=== PATIENT | female | born 1965 | race Caucasian/White ===

== ENCOUNTER 2017-08-26 13:53 | Observation (INO) | payer OTHER ==
[~2017-08-26] VITALS: Ht 147.3 cm; Wt 64.9 kg
[2017-08-26 14:25] LABS: BASOPHILS # (AUTO) 0.1 (0.0-0.1); BASOPHILS % 0.9 % (0.0-1.0); EOSINOPHILS # (AUTO) 0.6 (0.0-0.4); EOSINOPHILS % 5.8 % (0.0-6.0); HEMATOCRIT 40.9 % (34.2-44.1); HEMOGLOBIN 14.9 g/dL (12.0-16.0); LYMPHOCYTES # (AUTO) 3.3 (1.0-3.2); LYMPHOCYTES % 30.3 % (18.0-39.1); MEAN CORPUSCULAR HEMOGLOBIN 30.5 pg (28-32); MEAN CORPUSCULAR HGB CONC 36.4 g/dL (31-35); MEAN CORPUSCULAR VOLUME 83.6 fL (81-99); MONOCYTES # (AUTO) 0.9 (0.2-0.8); MONOCYTES % 7.9 % (4.4-11.3); NEUTROPHILS # (AUTO) 5.9 (2.1-6.9); NEUTROPHILS % 54.6 % (38.7-80.0); PLATELET COUNT 388 x10e3/uL (140-360); RED BLOOD COUNT 4.89 x10e6/uL (3.6-5.1); RED CELL DISTRIBUTION WIDTH 12.3 % (11.7-14.4)
[2017-08-26 14:44] LABS: ALANINE AMINOTRANSFERASE 32 IU/L (0-55); ALBUMIN 3.3 g/dL (3.5-5.0); ALBUMIN/GLOBULIN RATIO 0.8 (0.8-2.0); ALKALINE PHOSPHATASE 154 IU/L (40-150); AMYLASE 25 U/L (25-125); ANION GAP 14.9 mmol/L (8-16); BLOOD UREA NITROGEN 15 mg/dL (7-26); BUN/CREATININE RATIO 19 (6-25); CARBON DIOXIDE 29 mmol/L (22-29); CHLORIDE 93 mmol/L (98-107); CREATININE, SERUM 0.78 mg/dL (0.57-1.11); EST GLOMERULAR FILTRATION RATE > 60 ML/MIN (60-); GLUCOSE 90 mg/dL (74-118); LIPASE 18 U/L (8-78); SODIUM 134 mmol/L (136-145)
[2017-08-26 14:46] LABS: POTASSIUM 2.9 mmol/L (3.5-5.1)
--- NOTE | 2017-08-26 15:04 | Diagnostic Imaging Report ---
PROCEDURE: A single PA view of the chest. COMPARISON: DX, CHEST 2 VIEWS, 03/21/2013, 11:17. INDICATIONS: RUQ PAIN, CHEST PAIN FINDINGS: Lines/tubes: None. Lungs: The lungs are well inflated. There is no evidence of consolidation or pulmonary edema. Pleura: Interval development of blunting of the left lateral costophrenic sulcus, which may represent pleural thickening versus small pleural effusion Heart and mediastinum: Cardiac silhouette is unremarkable. Pulmonary vasculature is normal. Bones: No acute bony abnormality. IMPRESSION: 1. findings may represent left pleural thickening versus small pleural effusion. Recommend chest PA and lateral for further evaluation. Shay Valderrama M.D. Dictated by: Shay Valderrama M.D. on 08/26/2017 at 15:04 Electronically approved by: Shay Valderrama M.D. on 08/26/2017 at 15:04
[2017-08-26 15:37] LABS: BILIRUBIN,URINE 1+ (NEGATIVE); CLARITY,URINE CLEAR (CLEAR); COLOR,URINE YELLOW (YELLOW); KETONES,URINE NEGATIVE (NEGATIVE); LEUKOCYTE ESTERASE ,URINE TRACE (NEGATIVE); NITRITE,URINE NEGATIVE (NEGATIVE); PROTEIN,URINE DIPSTICK NEGATIVE (NEGATIVE); URINE UROBILINOGEN 0.2 mg/dL (0.2 - 1)
[2017-08-26 15:52] LABS: EPITHELIAL CELLS,URINE RARE /LPF; MUCUS,URINE FEW (RARE); RBC,URINE 0-5 /HPF (0-5); WBC,URINE (MAN) 0-5 /HPF (0-5)
[2017-08-26] MEDS ORDERED: POTASSIUM CHLORIDE 20 MEQ TAB CR PO STA (16:03)
[2017-08-26] MEDS ORDERED: POTASSIUM CHLORIDE 10MEQ/100ML 200 ML IV ONE (16:15)
[2017-08-26] MEDS ORDERED: POTASSIUM CHLORIDE 20MEQ/100ML 100 ML IV SCH (16:15)
--- NOTE | 2017-08-26 16:57 | Diagnostic Imaging Report ---
PROCEDURE:US GALLBLADDER COMPARISON:None. INDICATIONS:RUQ PAIN TECHNIQUE: Baez-scale and color doppler transverse and longitudinal images of the right upper quadrant of the abdomen were obtained. FINDINGS: Liver: 10.8 cm in right mid-clavicular line. Increased echogenicity. Relatively well-circumscribed 1.7 x 1.6 x 1.8 cm homogeneously hyperechoic lesion in the lateral aspect of the right hepatic lobe. No other focal lesions. Main portal vein: 0.8 cm, hepatopetal flow Gallbladder: No stones, sludge, wall thickening, or pericholecystic fluid. Common Bile Duct: 0.2 cm Sonographic Polanco's sign: Negative Right kidney: 10.5 cm. Normal echogenicity. No solid masses or hydronephrosis. 4.5 x 3.2 x 5.2 cm cystic, anechoic, mostly exophytic lesion in the mid inferior aspect of the right kidney Pancreas: The visualized portions are unremarkable. Inferior vena cava: Patent Aorta: Within normal limits Ascites: None in the right upper quadrant of the abdomen. CONCLUSION: 1. No sonographic evidence of cholelithiasis or cholecystitis. 2. 1.8 cm hyperechoic lesion in the right hepatic lobe likely represents a hemangioma. This can be further assessed with CT abdomen, which has been previously scheduled 3. 5.2 cm right renal simple cyst. Shay Valderrama M.D. Dictated by: Shay Valderrama M.D. on 08/26/2017 at 16:57 Electronically approved by: Shay Valderrama M.D. on 08/26/2017 at 16:57
[2017-08-26] MEDS ORDERED: AMBIEN10 MG PO (17:02)
[2017-08-26] MEDS ORDERED: ULTRAM 50MG50 MG PO (17:02)
[2017-08-26] MEDS ORDERED: HYDROCHLOROTH12.5 M1 PO (17:02)
--- NOTE | 2017-08-26 17:46 | Diagnostic Imaging Report ---
PROCEDURE: CT scan of the chest WITH intravenous contrast, using PE protocol. TECHNIQUE: The chest was scanned utilizing a multidetector helical scanner from the lung apex through the level of the adrenal glands after the IV administration of 100 cc of Isovue 370 with special concentration in the pulmonary arteries. Coronal and sagittal multiplanar reformations were obtained. COMPARISON: None. INDICATIONS: PE FINDINGS: Lines/tubes: None. Lungs and Airways: No filling defects in the main, right or left pulmonary arteries to their segmental level to suggest pulmonary embolism. Mild compressive atelectasis of the left lower lobe. Linear opacities in the anterior left lower lobe likely represent subsegmental atelectasis or scarring (series 3, image 83). Linear opacities with associated bronchiectasis in the lingula (series 3, image 62), consistent with scarring. 3-4 mm pulmonary nodule in the right upper lobe (series 3, image 39). 4 mm groundglass nodule in the right middle lobe (series 3, image 61). 4-5 mm nodule in the right middle lobe (series 3, image 66). 3 mm pulmonary nodule in the left lower lobe (series 3, image 67). 1.2 cm linear density in the posterior left lower lobe (series 3, image 68), likely representing an impacted bronchus. Questionable centrilobular nodules, predominantly in the upper lobes (for example, series 3, image 32), with relative sparing of the periphery. Focal rounded convexity in the lateral right lower lobe (series 3, image 94, and coronal image 50), described on CT, abdomen and pelvis performed same day. Airways are clear, without endobronchial lesions. Pleura: Trace left pleural effusion. Heart and mediastinum: Thyroid is unremarkable. Heart size is normal. No pericardial effusion. The aorta is non-aneurysmal. Main pulmonary artery is normal in caliber. Lymph nodes: No mediastinal or axillary adenopathy. Enlarged right hilar nodes (series 2, image 64 and coronal image 43). Abdomen: Limited contrast-enhanced views of the upper abdomen show no abnormality within the visualized liver, spleen, pancreas, or kidneys. The adrenal glands are normal. Bones: No aggressive lytic lesions. Bilateral breast implants. IMPRESSION: 1. no CT evidence of pulmonary embolism to the segmental level. 2. Trace left pleural effusion with associated mild compressive atelectasis of the left lower lobe. Left lower lobe and lingular scarring. 3. Questionable centrilobular nodules, predominantly in the upper lobes. Respiratory bronchiolitis if the patient is a smoker, infectious airway disease or hypersensitivity pneumonitis are considerations. 4. Several pulmonary nodules, as described. Per Fleischner Society 2017 guidelines, these nodules do not require followup if the patient is low risk. 5. Mildly enlarged right hilar nodes. 6. Please see CT abdomen and pelvis for description of focal rounded convexity in the lateral right lower lobe. Shay Valderrama M.D. Dictated by: Shay Valderrama M.D. on 08/26/2017 at 17:46 Electronically approved by: Shay Valderrama M.D. on 08/26/2017 at 17:46
--- NOTE | 2017-08-26 18:02 | Diagnostic Imaging Report ---
PROCEDURE: CT ABDOMEN AND PELVIS WITH CONTRAST TECHNIQUE: The abdomen and pelvis were scanned utilizing a multidetector helical scanner from the diaphragm to the lesser trochanter after the IV administration of 100 cc of Isovue 370. Coronal and sagittal multiplanar reformations were obtained. COMPARISON: Patients [facility], US, US GALLBLADDER, 08/26/2017, 15:13. INDICATIONS: ABD PAIN FINDINGS: LOWER THORAX: 2.5 x 1.3 x 1.7 cm subpleural focal oval shaped lesion with peripheral enhancement in the lateral right lower lobe at the costophrenic angle (series 5, image 13, sagittal, image 35 and coronal image 61). Please see CT chest performed same date for other lung findings. HEPATOBILIARY: 8-9 mm hypodense lesion in hepatic segment VII (series 5, image 14) with peripheral nodular enhancement. 2.4 x 1.5 x 1.6 cm hypodense lesion in hepatic segment (series 5, image 28 and sagittal image 40), which shows peripheral nodular enhancement. Adjacent 4 mm hypodense lesion (series 5, image 28), which is too small to characterize. Wedge-shaped hypodense lesion in hepatic segment IVB adjacent to the falciform ligament, likely represent focal fatty infiltration. No other focal lesions. No biliary ductal dilation. Gallbladder is unremarkable. SPLEEN: No splenomegaly. PANCREAS: No focal masses or ductal dilatation. ADRENALS: No adrenal nodules. KIDNEYS/URETERS: No hydronephrosis, stones, or solid mass lesions. 5.2 x 4.5 x 4.7 cm hypodense lesion in the interpolar region of the right kidney (series 5, image 35), which contains predominantly thin peripheral calcification, except for a slightly thicker linear calcification in its inferior aspect (sagittal image 45 and coronal image 60) and measured density of 20-21 HU. No mural nodules. 3.4 x 3.0 x 2.7 cm simple cyst in the right kidney (series 5, image 30). PELVIC ORGANS/BLADDER: Bladder is mostly decompressed and grossly unremarkable. Uterus is absent. No adnexal masses. PERITONEUM / RETROPERITONEUM: No free air or fluid. LYMPH NODES: No lymphadenopathy. VESSELS: Atherosclerotic calcification of the abdominal aorta and iliac vessels. GI TRACT: No bowel dilation or evidence of obstruction. Appendix is well identified and normal in caliber. No pericolonic inflammatory changes. Scattered diverticula in the sigmoid colon without diverticulitis. BONES AND SOFT TISSUES: No aggressive lytic lesion. Mild degenerative disc changes in the lumbosacral spine. Soft tissues are grossly unremarkable. IMPRESSION: 1. No acute abdominopelvic abnormalities. 2. Indeterminate subpleural oval shaped lesion with peripheral enhancement in the lateral right lower lobe at the costophrenic angle. This may represent a focal pleural based mass (solitary fibrous tumor is a consideration) versus focal empyema. 3. 2 lesions in the liver are indeterminate, however, peripheral nodular enhancement, suggestive of small hemangiomas. These can be assessed with contrast-enhanced MRI, abdomen with liver mass protocol on a nonemergent basis. 4. Complicated 5.2 cm cystic lesion in the right kidney with peripheral calcification, which remains indeterminate. Recommend CT abdomen with renal mass protocol on a nonemergent basis. Shay Valderrama M.D. Dictated by: Shay Valderrama M.D. on 08/26/2017 at 18:02 Electronically approved by: Shay Valderrama M.D. on 08/26/2017 at 18:02
--- OUTSIDE RECORDS SUMMARY | 2017-08-26 18:46 | XMS REPORT ---
Author Author [facility] Address Unknown Phone Unavailable Care Team Providers [employer] Name Role Phone MELVIN DOMINIQUE Unavailable Unavailable Problems This patient has no known problems. Allergies, Adverse Reactions, Alerts This patient has no known allergies or adverse reactions. Medications This patient has no known medications. Results Test Description Test Time Test Comments Text Results Atomic Results Result Comments CT ABDOMEN/PELVIS W [place] [address] Patient Name: VINNIE TRINH MR #: [id number] : 1965 Age/Sex: 51/F Req #: [id number] Adm Physician: Ordered by: MELVIN WHITTINGTON, DOMINIQUE WHITTINGTON Report #: [id number] Location: ER Room/Bed: Procedure: [id number] CT/CT ABDOMEN/PELVIS W Exam Date: 08/26/17 Exam Time: 1630 REPORT STATUS: Signed PROCEDURE: CT ABDOMEN AND PELVIS WITH CONTRAST TECHNIQUE: The abdomen and pelvis were scanned utilizing a multidetector helical scanner from the diaphragm to the lesser trochanter after the IV administration of 100 cc of Isovue 370. Coronal and sagittal multiplanar reformations were obtained. COMPARISON : Patients [facility], US, US GALLBLADDER, 08/26/2017, 15:13. INDICATIONS: ABD PAIN FINDINGS: LOWER THORAX: 2.5 x 1.3 x 1.7 cm subpleural focal oval shaped lesion with peripheral enhancement in the lateral right lower lobe at the costophrenic angle (series 5, image 13, sagittal, image 35 and coronal image 61). Please see CT chest performed same date for other lung findings. HEPATOBILIARY: 8-9 mm hypodense lesion in hepatic segment VII (series 5, image 14) with peripheral nodular enhancement. 2.4 x 1.5 x 1.6 cm hypodense lesion in hepatic segment ( series 5, image 28 and sagittal image 40), which shows peripheral nodular enhancement. Adjacent 4 mm hypodense lesion (series 5, image 28), which is too small to characterize. Wedge-shaped hypodense lesion in hepatic segment IVB adjacent to the falciform ligament, likely represent focal fatty infiltration. No other focal lesions. No biliary ductal dilation. Gallbladder is unremarkable. SPLEEN: No splenomegaly. PANCREAS: No focal masses or ductal dilatation. ADRENALS: No adrenal nodules. KIDNEYS/ URETERS: No hydronephrosis, stones, or solid mass lesions. 5.2 x 4.5 x 4.7 cm hypodense lesion in the interpolar region of the right kidney (series 5, image 35), which contains predominantly thin peripheral calcification, except for a slightly thicker linear calcification in its inferior aspect ( sagittal image 45 and coronal image 60) and measured density of 20-21 HU. No mural nodules. 3.4 x 3.0 x 2.7 cm simple cyst in the right kidney (series 5, image 30). PELVIC ORGANS/BLADDER: Bladder is mostly decompressed and grossly unremarkable. Uterus is absent. No adnexal masses. PERITONEUM / RETROPERITONEUM: No free air or fluid. LYMPH NODES: No lymphadenopathy. VESSELS: Atherosclerotic calcification of the abdominal aorta and iliac vessels. GI TRACT: No bowel dilation or evidence of obstruction. Appendix is well identified and normal in caliber. No pericolonic inflammatory changes. Scattered diverticula in the sigmoid colon without diverticulitis. BONES AND SOFT TISSUES: No aggressive lytic lesion. Mild degenerative disc changes in the lumbosacral spine. Soft tissues are grossly unremarkable. IMPRESSION: 1. No acute abdominopelvic abnormalities. 2. Indeterminate subpleural oval shaped lesion with peripheral enhancement in the lateral right lower lobe at the costophrenic angle. This may represent a focal pleural based mass (solitary fibrous tumor is a consideration) versus focal empyema. 3. 2 lesions in the liver are indeterminate, however, peripheral nodular enhancement, suggestive of small hemangiomas. These can be assessed with contrast-enhanced MRI, abdomen with liver mass protocol on a nonemergent basis. 4. Complicated 5.2 cm cystic lesion in the right kidney with peripheral calcification, which remains indeterminate. Recommend CT abdomen with renal mass protocol on a nonemergent basis. Demond Valderrama M.D. Dictated by: Demond Valderrama M.D. on 08/26/2017 at 18:02 Electronically approved by : Demond Valderrama M.D. on 08/26/2017 at 18:02 Dictated By: DEMOND VALDERRAMA MD 01 Transcribed By: TYLER on 08/26/171801 COPY TO: DOMINIQUE CHARLES CT CHEST W [place] [address] Patient Name: VINNIE TRINH MR #: [id number] : 1965 Age/Sex: 51/F Req # : [id number] Adm Physician: Ordered by: JOSELITO TABOR NARROW GAUGE BRAKEMAN Report #: [id number] Location: ER Room/Bed: Procedure: [id number] CT/CT CHEST W Exam Date: 08/26/17 Exam Time: 1630 REPORT STATUS: Signed PROCEDURE: CT scan of the chest WITH intravenous contrast, using PE protocol. TECHNIQUE: The chest was scanned utilizing a multidetector helical scanner from the lung apex through the level of the adrenal glands after the IV administration of 100 cc of Isovue 370 with special concentration in the pulmonary arteries. Coronal and sagittal multiplanar reformations were obtained. COMPARISON: None. INDICATIONS: PE FINDINGS: Lines/tubes: None. Lungs and Airways: No filling defects in the main, right or left pulmonary arteries to their segmental level to suggest pulmonary embolism. Mild compressive atelectasis of the left lower lobe. Linear opacities in the anterior left lower lobe likely represent subsegmental atelectasis or scarring (series 3, image 83). Linear opacities with associated bronchiectasis in the lingula (series 3, image 62), consistent with scarring. 3-4 mm pulmonary nodule in the right upper lobe (series 3, image 39) . 4 mm groundglass nodule in the right middle lobe (series 3, image 61). 4- 5 mm nodule in the right middle lobe (series 3, image 66). 3 mm pulmonary nodule in the left lower lobe (series 3, image 67). 1.2 cm linear density in the posterior left lower lobe (series 3, image 68), likely representing an impacted bronchus. Questionable centrilobular nodules, predominantly in the upper lobes (for example, series 3, image 32), with relative sparing of the periphery. Focal rounded convexity in the lateral right lower lobe (series 3, image 94, and coronal image 50), described on CT, abdomen and pelvis performed same day. Airways are clear, without endobronchial lesions. Pleura : Trace left pleural effusion. Heart and mediastinum: Thyroid is unremarkable. Heart size is normal. No pericardial effusion. The aorta is non -aneurysmal. Main pulmonary artery is normal in caliber. Lymph nodes: No mediastinal or axillary adenopathy. Enlarged right hilar nodes (series 2, image 64 and coronal image 43). Abdomen: Limited contrast-enhanced views of the upper abdomen show no abnormality within the visualized liver, spleen, pancreas, or kidneys. The adrenal glands are normal. Bones: No aggressive lytic lesions. Bilateral breast implants. IMPRESSION: 1. no CT evidence of pulmonary embolism to the segmental level. 2. Trace left pleural effusion with associated mild compressive atelectasis of the left lower lobe. Left lower lobe and lingular scarring. 3. Questionable centrilobular nodules, predominantly in the upper lobes. Respiratory bronchiolitis if the patient is a smoker, infectious airway disease or hypersensitivity pneumonitis are considerations. 4. Several pulmonary nodules , as described. Per Fleischner Society 2017 guidelines, these nodules do not require followup if the patient is low risk. 5. Mildly enlarged right hilar nodes. 6. Please see CT abdomen and pelvis for description of focal rounded convexity in the lateral right lower lobe. Demond Valderrama M.D. Dictated by: Demond Valderrama M.D. on 08/26/2017 at 17: 46 Electronically approved by: Demond Valderrama M.D. on 08/26/2017 at 17:46 Dictated By: DEMOND VALDERRAMA MD 45 Transcribed By: TYLER on 08/26/171745 COPY TO: JOSELITO TABOR NARROW GAUGE BRAKEMAN CHEST SINGLE (NOT PORTABLE) [place] [address] Patient Name: VINNIE TRINH MR #: [id number] : 1965 Age/Sex: 51/F Req #: [id number] Adm Physician: Ordered by: JOSELITO TABOR NARROW GAUGE BRAKEMAN Report #: [id number] Location: ER Room/Bed: Procedure: [id number] DX/CHEST SINGLE (NOT PORTABLE) Exam Date: 08/26/17 Exam Time: 1415 REPORT STATUS: Signed PROCEDURE: A single PA view of the chest. COMPARISON: DX, CHEST 2 VIEWS, 03/21/2013 , 11:17. INDICATIONS: RUQ PAIN, CHEST PAIN FINDINGS: Lines/ tubes: None. Lungs: The lungs are well inflated. There is no evidence of consolidation or pulmonary edema. Pleura: Interval development of blunting of the left lateral costophrenic sulcus, which may represent pleural thickening versus small pleural effusion Heart and mediastinum : Cardiac silhouette is unremarkable. Pulmonary vasculature is normal. Bones: No acute bony abnormality. IMPRESSION: 1. findings may represent left pleural thickening versus small pleural effusion. Recommend chest PA and lateral for further evaluation. Demond Valderrama M.D. Dictated by: Demond Valderrama M.D. on 08/26/2017 at 15:04 Electronically approved by: Demond Valderrama M.D. on 08/26/2017 at 15:04 Dictated By: DEMOND VALDERRAMA MD 1504 Transcribed By: TYLER on 08/26/17 1504 COPY TO: JOSELITO TABOR NARROW GAUGE BRAKEMAN US GALLBLADDER [place] [address] Patient Name: VINNIE TRINH MR #: [id number] : 1965 Age/Sex: 51/F Req # : [id number] Adm Physician: Ordered by: JOSELITO TABOR NARROW GAUGE BRAKEMAN Report #: [id number] Location: ER Room/Bed: Procedure: [id number] US/US GALLBLADDER Exam Date: Exam Time: REPORT STATUS: Signed PROCEDURE: US GALLBLADDER COMPARISON: None. INDICATIONS: RUQ PAIN TECHNIQUE: Beaz-scale and color doppler transverse and longitudinal images of the right upper quadrant of the abdomen were obtained. FINDINGS: Liver: 10.8 cm in right mid-clavicular line. Increased echogenicity. Relatively well-circumscribed 1.7 x 1.6 x 1.8 cm homogeneously hyperechoic lesion in the lateral aspect of the right hepatic lobe. No other focal lesions. Main portal vein: 0.8 cm, hepatopetal flow Gallbladder: No stones, sludge, wall thickening, or pericholecystic fluid. Common Bile Duct: 0.2 cm Sonographic Polanco's sign: Negative Right kidney: 10.5 cm. Normal echogenicity. No solid masses or hydronephrosis. 4.5 x 3.2 x 5.2 cm cystic, anechoic, mostly exophytic lesion in the mid inferior aspect of the right kidney Pancreas: The visualized portions are unremarkable. Inferior vena cava: Patent Aorta: Within normal limits Ascites: None in the right upper quadrant of the abdomen. CONCLUSION: 1. No sonographic evidence of cholelithiasis or cholecystitis. 2. 1.8 cm hyperechoic lesion in the right hepatic lobe likely represents a hemangioma. This can be further assessed with CT abdomen, which has been previously scheduled 3. 5.2 cm right renal simple cyst. Demond Valderrama M.D. Dictated by: Demond Valderrama M.D. on 01/2018 at 16:57 Electronically approved by: Demond Valderrama M.D. on 08/26/2017 at 16:57 Dictated By: DEMOND VALDERRAMA MD 56 Transcribed By: TYLER on 08/26/171656 COPY TO: JOSELITO TABOR NP
[2017-08-26 20:48] VITALS: BP 116/65
[2017-08-26] MEDS: TRAMADOL HCL 50 MG TAB PO SCH (21:43)
[2017-08-26 22:33] VITALS: BP 116/65
[2017-08-26] MEDS ORDERED: IOPAMIDOL 370 MG/ML 200 ML INFUS..BTL INJ ONE (22:43)
[2017-08-26] MEDS ORDERED: SODIUM CHLORIDE 0.9% 50ML 50 ML ONE (22:43)
[2017-08-27] VITALS: BP 116/56
[2017-08-27] MEDS: TRAMADOL HCL 50 MG TAB PO SCH ×5 (01:59→22:00)
[2017-08-27 04:00] VITALS: BP 100/70
[2017-08-27 06:38] LABS: BASOPHILS # (AUTO) 0.1 (0.0-0.1); BASOPHILS % 0.9 % (0.0-1.0); EOSINOPHILS # (AUTO) 0.5 (0.0-0.4); EOSINOPHILS % 6.1 % (0.0-6.0); HEMATOCRIT 39.3 % (34.2-44.1); LYMPHOCYTES # (AUTO) 2.3 (1.0-3.2); LYMPHOCYTES % 26.9 % (18.0-39.1); MEAN CORPUSCULAR HEMOGLOBIN 30.4 pg (28-32); MEAN CORPUSCULAR HGB CONC 35.6 g/dL (31-35); MEAN CORPUSCULAR VOLUME 85.2 fL (81-99); MONOCYTES # (AUTO) 0.8 (0.2-0.8); MONOCYTES % 9.5 % (4.4-11.3); NEUTROPHILS # (AUTO) 4.9 (2.1-6.9); NEUTROPHILS % 56.1 % (38.7-80.0); PLATELET COUNT 384 x10e3/uL (140-360); RED BLOOD COUNT 4.61 x10e6/uL (3.6-5.1); RED CELL DISTRIBUTION WIDTH 12.6 % (11.7-14.4)
[2017-08-27 07:37] LABS: ALANINE AMINOTRANSFERASE 31 IU/L (0-55); ALBUMIN 2.9 g/dL (3.5-5.0); ALBUMIN/GLOBULIN RATIO 0.7 (0.8-2.0); ALKALINE PHOSPHATASE 144 IU/L (40-150); ANION GAP 16.6 mmol/L (8-16); BLOOD UREA NITROGEN 11 mg/dL (7-26); BUN/CREATININE RATIO 16 (6-25); CALCIUM 9.9 mg/dL (8.4-10.2); CARBON DIOXIDE 26 mmol/L (22-29); CHLORIDE 98 mmol/L (98-107); CREATININE, SERUM 0.68 mg/dL (0.57-1.11); EST GLOMERULAR FILTRATION RATE > 60 ML/MIN (60-); GLUCOSE 91 mg/dL (74-118); POTASSIUM 3.6 mmol/L (3.5-5.1); SODIUM 137 mmol/L (136-145)
[2017-08-27 08:49] VITALS: BP 110/60
[2017-08-27 11:11] VITALS: BP 110/60
--- NOTE | 2017-08-27 11:48 | History and Physical ---
DATE OF : 1965 A 51-year-old lady, who comes in with abdominal pain. HISTORY OF PRESENTING ILLNESS: Ms. Romero is a 51-year-old lady with the history of abdominal pain for the last 1 week. The pain started about a week ago, was in the left thoracic aorta, and the patient went to her primary care physician, was given some muscle relaxants and did not get any better. Did a CT scan. CT scan showed some urinary calculi and cyst. Saw her urologist yesterday and was scheduled for a CT scan of the abdomen and pelvis for categorization of the cyst and was told that the cyst or the stone were not causing the pain. The patient woke up yesterday with intractable pain, at this time right sided and came into the emergency room, was found to have a pleural based lesion, abdominal pain, and admitted for the same. PAST MEDICAL HISTORY: History of hypertension, history of insomnia. MEDICINE SHE TAKES AT HOME 1. Hydrochlorothiazide 12.5 mg. 2. Tramadol 50 mg as needed for pain, which was recently started. 3. Ambien 10 mg at night time for sleep. SURGICAL HISTORY: History of hysterectomy. Patient had breast implants done, C-sections, tonsillectomy and adenoidectomy, has multiple EENT problems and therefore, has chronic tubes in the ears. Patient is postmenopausal. SOCIAL HISTORY: No history of ETOH and no alcohol use and never a smoker. Patient works in the [employer]. REVIEW OF SYSTEMS: Negative for chest pain, no shortness of breath. No nausea, no vomiting, no diarrhea, no constipation, no rectal bleeding, no hematochezia, no hematemesis. Positive for abdominal pain as mentioned above and the patient radiates to the back. EXAMINATION GENERAL: Patient is alert and oriented times 3 and no pain at this time. HEENT: Normocephalic, atraumatic. Pupils react to light and accommodation. Pharynx is normal. NECK: No JVD. CVS: S1, S2 normal. Regular rhythm. LUNGS: Clear to auscultation bilaterally. ABDOMEN: Tender in the right upper quadrant and no rebound, no guarding, no Polanco signs. BACK: Normal. No CVA tenderness present. SKIN: Normal. EXTREMITIES: No clubbing, no cyanosis, no edema. IMAGING STUDIES: Abdomen, gallbladder ultrasound with no sonographic evidence of cholelithiasis, cholecystitis, 1.8-cm hyperechoic lesion seen in the liver. Chest x-ray shows left pleural thickening, which is small pleural effusion. CT of chest shows no CT evidence of pulmonary embolism, trace left pleural effusion with associated mild compressive atelectasis, left lower lobe and lingular scarring, essentially normal nodules in the upper lobes, respiratory bronchiolitis. The patient is a smoker. Several pulmonary nodules as described. Mildly enlarged right hilar node and CT of the abdomen shows no acute abdominopelvic abnormalities. Indeterminate subpleural oval-shaped lesion with peripheral enhancements in right lower lobe in the costophrenic angle. There is presence of focal pleural-based mass. Two lesions in the liver of indeterminate nature. Complicated 5.2-cm cystic lesion of right kidney with peripheral calcification, which remains indeterminate. The CT of the abdomen, did comment on it and shows 5.2 x 4.5 x 4.7 hypodense lesion and the complexity of the cyst is not mentioned. PLAN: At this time, will go ahead and consult pulmonary for the pleural-based lesion. CT of the abdomen with renal mass protocol can be assessed, but as an outpatient basis. Will let the patient know about this and the patient has been notified about this. As far as the pleural-based mass, probably a CT-guided biopsy is of importance. We are also going to do a HIDA scan for her gallbladder to rule out gallbladder disease, would be mimicking the abdominal pain and the lung problem, but there is an obvious pleural effusion. Will go ahead and have pulmonary take a look at this too. Further recommendation per clinical course. Will continue monitor the patient. Will keep the patient in-house and follow the patient along with consultants. Job#: [id number] CQ
[2017-08-27 15:32] VITALS: BP 116/56
--- NOTE | 2017-08-27 17:23 | Consultation ---
DATE OF CONSULTATION: August 27, 2017 PULMONARY CONSULTATION REASON FOR CONSULTATION: Abnormal CT chest. HISTORY OF PRESENT ILLNESS: Ms. Romero is a 51-year-old female who presented to the emergency room with the complaints of left-sided pleuritic chest pain. The pain had started a week and a half ago, and the pain is associated with mild shortness of breath. She also had recently had urinary stone which was nonobstructing and saw Urology in the office and was scheduled to do a CT abdomen/pelvis. She came to the emergency room with these complaints, underwent a CT of the chest/abdomen/pelvis, and CT of the chest showed a pleural-based mass and multiple lung nodules, which I have reviewed. She has been a smoker for 35 years for 2 packs per day. She denies any vomiting. She is having abdominal discomfort and nausea. REVIEW OF SYSTEMS: GENERAL: Denies any fever or chills. HEAD: Denies any head trauma. ENT: Denies any earache, nosebleed, throat pain. CVS: Denies any chest pain. RESPIRATORY: Shortness of breath. GI: Nausea. REST OF THE REVIEW OF SYSTEMS: Are negative except as in history of present illness. PAST MEDICAL HISTORY: As a child, when she was 15 years old, she had a left lung collapse and had a chest tube. She has hypertension and insomnia. MEDICATIONS: Reviewed. PAST SURGICAL HISTORY: Hysterectomy. Had breast implants done. section. Tonsillectomy and adenoidectomy. ENT problems, has tubes in the ears. FAMILY HISTORY AND SOCIAL HISTORY: No history of alcohol. Smokes for last 35 years 2 packs per day. PHYSICAL EXAMINATION: VITALS: Temperature 97, pulse of 92, blood pressure 116/56, respiratory rate of 18, O2 sat 95% on room air. SKIN: Warm and dry. GENERAL APPEARANCE: She is a middle-aged female. She is in mild distress because of the left-sided chest wall pain. HEENT: Head atraumatic, normocephalic. Pupils are reactive. NECK: Supple. CHEST: Lower half on the left side has some crackles but otherwise clear to auscultation. Occasional wheezing. HEART: S1 and S2 audible. ABDOMEN: Soft, nontender, nondistended. Bowel sounds audible. No hepatosplenomegaly. EXTREMITIES: No clubbing, cyanosis or edema. NEUROLOGICALLY: She is awake and alert, oriented, following commands, responding to questions appropriately. LABORATORY DATA: White count of 10.74, hemoglobin 14.9, platelets 388. Chemistry: Sodium 137, potassium 3.6, chloride 98, BUN 11, creatinine 0.68. D-dimer was 2.25. CT of the chest, abdomen and pelvis was done. I have reviewed the films of CT chest. It is showing small lung nodules, multiple, but these nodules are less than 1 cm. There is a 1 cm density in the left lower lobe which looks like scarring. There is thickened pleura on the left side along with a possible pleural-based mass. ASSESSMENT: Ms. Romero is a 51-year-old female. She presented to the emergency room with pleuritic chest pain. CT of the chest is showing left pleural-based mass. She has been a smoker for 35 years 2 packs per day, and there is a left lower lobe area which is 1.2 cm. However, it looks like scarring. She also had a left-sided chest tube and lung collapse when she was 15 years old. PLAN 1. This could represent scarring. However, patient, being a heavy smoker, almost [id number] smoker with this pleural-based mass, will need biopsy. I will schedule her for CT-guided biopsy. 2. High likelihood of having COPD because of [id number] smoking history. Will order bedside PFT. 3. I will start the patient on nebulizer treatment. Thank you for this consult. Job#: [id number] BRADY
[2017-08-27 20:00] VITALS: BP 101/57
[2017-08-27] MEDS: ZOLPIDEM TARTRATE 10 MG TAB PO PRN (21:26)
--- NOTE | 2017-08-27 21:46 | Diagnostic Imaging Report ---
Hepatobiliary Scan with Gallbladder Ejection Fraction Clinical information: 51 F with RUQ abdominal pain x1.5 weeks Technique: Following intravenous administration of 6 millicuries of Tc-99m mebrofenin, dynamic images of the abdomen in the anterior projection were obtained through 40 minutes. Sincalide (CCK analog) 1.4 micrograms was administered intravenously over 30 minutes with additional imaging for determination of gallbladder ejection fraction. Discussion: Perfusion of the liver is normal. Extraction of tracer by the liver parenchyma is normal. Tracer appears promptly within the biliary tract. The gallbladder begins to fill by 30 minutes post injection of tracer and fills adequately. Tracer is seen in the small bowel by 22 minutes. The gallbladder ejection fraction with sincalide is 37% (normal greater than 40%). Impression: 1. Filling of the gallbladder excludes acute cystic duct obstruction/acute cholecystitis. 2. The decreased gallbladder ejection fraction of 37% supports the clinical diagnosis of chronic cholecystitis/gallbladder dyskinesia. Signed by: Dr. Ashley Helton M.D. on 08/27/2017 9:43 PM
[2017-08-28] VITALS (8 sets, daily range): BP systolic 97–111; BP diastolic 54–65
[2017-08-28] MEDS: ALBUTEROL/IPRATROPIUM 3 ML NEB NEB SCH ×3 (01:00→20:00)
[2017-08-28] MEDS: TRAMADOL HCL 50 MG TAB PO SCH ×6 (01:25→22:00)
[2017-08-28 06:25] LABS: BASOPHILS # (AUTO) 0.1 (0.0-0.1); BASOPHILS % 1.2 % (0.0-1.0); EOSINOPHILS # (AUTO) 0.7 (0.0-0.4); HEMATOCRIT 41.6 % (34.2-44.1); HEMOGLOBIN 14.4 g/dL (12.0-16.0); LYMPHOCYTES # (AUTO) 2.5 (1.0-3.2); LYMPHOCYTES % 28.1 % (18.0-39.1); MEAN CORPUSCULAR HGB CONC 34.6 g/dL (31-35); MEAN CORPUSCULAR VOLUME 86.7 fL (81-99); MONOCYTES # (AUTO) 0.9 (0.2-0.8); MONOCYTES % 9.4 % (4.4-11.3); NEUTROPHILS # (AUTO) 4.8 (2.1-6.9); NEUTROPHILS % 52.7 % (38.7-80.0); PLATELET COUNT 300 x10e3/uL (140-360); RED CELL DISTRIBUTION WIDTH 12.5 % (11.7-14.4)
[2017-08-28 06:52] LABS: ANION GAP 12.6 mmol/L (8-16); BLOOD UREA NITROGEN 10 mg/dL (7-26); BUN/CREATININE RATIO 14 (6-25); CALCIUM 9.6 mg/dL (8.4-10.2); CARBON DIOXIDE 31 mmol/L (22-29); CHLORIDE 97 mmol/L (98-107); CREATININE, SERUM 0.71 mg/dL (0.57-1.11); EST GLOMERULAR FILTRATION RATE > 60 ML/MIN (60-); GLUCOSE 106 mg/dL (74-118); POTASSIUM 3.6 mmol/L (3.5-5.1); SODIUM 137 mmol/L (136-145)
--- NOTE | 2017-08-28 12:49 | Consultation ---
DATE OF CONSULTATION: August 28, 2017 REFERRING PHYSICIAN: Dr. Jon Funez HISTORY OF PRESENT ILLNESS: Patient is a 51-year-old female admitted to the hospital with complaints of abdominal pain. Patient describes pain in the epigastrium and right upper quadrant. She has had pain that was fairly severe for 2 days prior to admission. It is somewhat less now, but she still is having pain every day. She says it wakes her at night. Evaluation has been done which revealed abnormal HIDA scan with low ejection fraction at 37%, but pain was not reproduced. Ultrasound of the gallbladder did not reveal any gallstones. She has also been found to have a pleural-based lesion, which is being evaluated by pulmonary. The patient has not had any fever and has not had any weight loss. PAST MEDICAL HISTORY: Significant for previous hysterectomy, section, bilateral breast implants, tonsillectomy and multiple sinus surgeries. She has a history of hypertension. MEDICATIONS: Hydrochlorothiazide, tramadol and Ambien for sleep. ALLERGIES: SHE HAS NO KNOWN ALLERGIES. FAMILY HISTORY: Noncontributory. SOCIAL HISTORY: The patient smokes cigarettes, a pack and a half per day for many years. Does not drink alcohol. REVIEW OF SYSTEMS: She has had no fever, no chest pain, no weight loss. She has had some associated nausea but no vomiting. PHYSICAL EXAMINATION VITAL SIGNS: Normal. GENERAL: The patient is awake and alert and in no distress. HEENT: No scleral icterus. NECK: No masses. LUNGS: Equal breath sounds are clear bilaterally. CARDIAC: Regular rate and rhythm with no murmur. ABDOMEN: Soft. There is slight epigastric tenderness. There is no mass. There is no distention. There is no organomegaly. EXTREMITIES: No edema. NEUROLOGIC: Grossly intact. IMAGING: Pleural-based lesion in the right lung base and a complex cyst in the right kidney. Ultrasound did not reveal any gallstones. HIDA scan is as stated above. ASSESSMENT: This is a 51-year-old female with a long history of cigarette smoking with epigastric and right upper quadrant abdominal pain. This very well may represent cholecystitis. There is some concern about the lesion in her lung. At this point recommend pursuing the lung lesion with biopsy as planned. After this is done, if her symptoms persist, she may benefit from cholecystectomy. This was explained to the patient. Thank you for asking me to see . Job#: [id number] JAY
[2017-08-28] MEDS: ZOLPIDEM TARTRATE 10 MG TAB PO PRN (21:20)
[2017-08-29] VITALS (8 sets, daily range): BP systolic 102–132; BP diastolic 58–80
[2017-08-29] MEDS: TRAMADOL HCL 50 MG TAB PO SCH ×5 (02:00→20:35)
[2017-08-29] MEDS: ALBUTEROL/IPRATROPIUM 3 ML NEB NEB SCH ×3 (07:30→20:15)
[2017-08-29 10:31] LABS: BILIRUBIN,URINE NEGATIVE (NEGATIVE); CLARITY,URINE CLEAR (CLEAR); COLOR,URINE YELLOW (YELLOW); KETONES,URINE NEGATIVE (NEGATIVE); LEUKOCYTE ESTERASE ,URINE NEGATIVE (NEGATIVE); NITRITE,URINE NEGATIVE (NEGATIVE); PROTEIN,URINE DIPSTICK NEGATIVE (NEGATIVE); URINE UROBILINOGEN 0.2 mg/dL (0.2 - 1)
[2017-08-29 10:45] LABS: EPITHELIAL CELLS,URINE FEW /LPF
[2017-08-29] MEDS ORDERED: IOPAMIDOL 370 MG/ML 200 ML INFUS..BTL INJ ONE (13:13)
[2017-08-29] MEDS ORDERED: SODIUM CHLORIDE 0.9% 50ML 100 ML ONE (13:13)
[2017-08-29] MEDS: ZOLPIDEM TARTRATE 10 MG TAB PO PRN (21:00)
--- NOTE | 2017-08-29 22:14 | Diagnostic Imaging Report ---
EXAM: CT abdomen WITHOUT and WITH contrast INDICATION: CT abdomen and pelvis on 08/26/2017 COMPARISON: None. TECHNIQUE: Abdomen was scanned utilizing a multidetector helical scanner from the lung base to the pelvic inlet before and after administration of IV contrast. Coronal and sagittal reformations were obtained. Renal mass protocol was performed. Scan was performed pre-, nephrographic, and 4 minute delayed phase. 3-D reconstructed images of the kidneys were obtained. Dedicated workstation IV CONTRAST: 100 mL of [id number] ORAL CONTRAST: None RADIATION DOSE: Total DLP: 1137.68 mGy*cm Estimated effective dose: (DLP x 0.015 x size factor) mSv COMPLICATIONS: None FINDINGS: LINES and TUBES: None. LOWER THORAX: Small bilateral pleural effusions left greater than right with evidence of atelectasis. HEPATOBILIARY: No focal hepatic lesions. No biliary ductal dilation. GALLBLADDER: No radio-opaque stones or sludge. No wall thickening. SPLEEN: No splenomegaly. PANCREAS: No focal masses or ductal dilatation. ADRENALS: Left adrenal nodule measuring 1.6 cm in diameter demonstrates attenuation below 0 Hounsfield units on precontrast consistent with lipid rich adenoma. The right adrenal gland is normal KIDNEYS/URETERS: Kidneys enhance symmetrically. No hydronephrosis. There is a 4 mm nonobstructive stone in the inferior renal collecting system of the left kidney. Punctate 2.5 mm stone in the interpolar region of the right kidney. * 4.6 cm peripherally calcified hypodense cystic lesion in the right kidney anterior interpolar region measuring 15 Hounsfield units on precontrast, 19 on portal venous and 24 on delayed compatible with a minimally complicated Bosniak type II cyst. * 2.4 cm cyst in the medullary area of the left renal interpolar region measuring 9 Hounsfield units on precontrast, 16 on portal venous phase and 15 on delay compatible with Bosniak type I cyst. GI TRACT: No abnormal distention, wall thickening, or evidence of bowel obstruction. There are diverticula within the colon without evidence of diverticulitis. Appendix is normal. LYMPH NODES: No lymphadenopathy. VESSELS: There is moderate atherosclerotic disease in the aorta and major arterial branches. PERITONEUM / RETROPERITONEUM: No free air or fluid. BONES: Unremarkable. SOFT TISSUES: Bilateral breast implants. IMPRESSION: 1. Bosniak type II right renal cyst. 2. Bosniak type I left renal cyst. 3. Left adrenal adenoma. 4. Other sclerotic disease of the abdomen aorta and branches. 5. Small bilateral pleural effusions left greater than right with dependent passive atelectasis Signed by: Dr. Jarvis Guzman M.D. on 08/29/2017 10:10 PM
[2017-08-30 00:06] VITALS: BP 118/79
[2017-08-30] MEDS: ALBUTEROL/IPRATROPIUM 3 ML NEB NEB SCH ×2 (00:15→08:00)
[2017-08-30 04:00] VITALS: BP 118/74
[2017-08-30] MEDS: TRAMADOL HCL 50 MG TAB PO SCH ×2 (06:18→09:53)
[2017-08-30 08:06] VITALS: BP 180/78
[2017-08-30 09:42] LABS: BILIRUBIN,URINE NEGATIVE (NEGATIVE); KETONES,URINE NEGATIVE (NEGATIVE); LEUKOCYTE ESTERASE ,URINE TRACE (NEGATIVE); NITRITE,URINE NEGATIVE (NEGATIVE); PROTEIN,URINE DIPSTICK NEGATIVE (NEGATIVE); URINE UROBILINOGEN 0.2 mg/dL (0.2 - 1)
[2017-08-30 09:45] LABS: CLARITY,URINE SL CLOUDY (CLEAR); COLOR,URINE YELLOW (YELLOW)
[2017-08-30 09:59] LABS: BACTERIA,URINE RARE /HPF; EPITHELIAL CELLS,URINE MODERATE /LPF; RBC,URINE 0-5 /HPF (0-5); WBC,URINE (MAN) 0-5 /HPF (0-5)
[2017-08-30 11:58] VITALS: BP 122/57
--- NOTE | 2017-08-30 13:14 | Diagnostic Imaging Report ---
PROCEDURE: CT CHEST WITHOUT CONTRAST CT scan of the chest WITHOUT intravenous contrast, using standard protocol. TECHNIQUE: The chest was scanned utilizing a multidetector helical scanner from the apex to the level of the adrenal glands without IV or oral contrast material. Coronal and sagittal multiplanar reformations were obtained. COMPARISON: [facility], CT, CT ABDOMEN WOW, 08/29/2017, 8:10. [facility], CT, CT CHEST W, 08/26/2017, 16:39. DLP: 460.76 mGy-cm INDICATIONS: Right pleural-based lesion for biopsy FINDINGS: Lines/tubes: None. Lungs and Airways: The right lower lung field pleural-based lesion identified on the original chest CT has a different configuration and appears to represent atelectasis. Biopsy was therefore not performed. Right middle lobe tree in bud opacity likely is infectious. Several pulmonary nodules as previously described. Pleura: Small bilateral pleural effusions; left side greater than right. These appear larger than when compared to the prior chest CT. Heart and mediastinum: The thyroid gland is normal. No significant mediastinal, hilar or axillary lymphadenopathy is seen. The heart and pericardium are within normal limits. Coronary artery calcification. Soft tissues: There are bilateral breast implants. Abdomen: Limited views of the upper abdomen show no abnormality within the visualized liver, spleen, pancreas, or kidneys. The adrenal glands are normal. Bones: The visualized bony thorax is within normal limits. IMPRESSION: 1. The right lower lobe lateral pleural-based density appears different in configuration and therefore likely represents atelectasis. 2. No biopsy was performed at this time. 3. Multiple pulmonary nodules as previously described deserving a followup (4-6 months) in a patient with a smoking history. 4. Bilateral pleural effusions have increased in size. Guero Zamora D.O. Dictated by: Guero Zamora D.O. on 08/30/2017 at 13:14 Electronically approved by: Guero Zamora D.O. on 08/30/2017 at 13:14
--- NOTE | 2017-10-18 21:57 | Discharge Summary ---
The patient came into the emergency room for chest pain. Initially, a pleural based mass was also found and the patient had right upper quadrant pain. A HIDA scan also was done and ultrasound of the gallbladder was done. HIDA scan was abnormal and for pleural based thickening of the mass with a history of smoking, a pleural biopsy was suggested. The patient did not undergo either one of them because of insurance reasons. The patient was then discharged home. Symptomatic treatment was given with pain medication, tramadol, and also albuterol/Atrovent treatment. The patient was supposed to have cholecystectomy as an outpatient basis. Dr. Baez and Dr. Luna were both consulted. FINAL DIAGNOSES 1. Pleural based mass. 2. Abdominal pain. 3. Pleuritic chest pain. 4. History of smoking. 5. History of chronic cholecystitis. Recommend cholecystectomy. Further recommendation as an outpatient and the patient is to follow up with surgeon and also with pulmonology. ELIZABETH CÁRDENAS MD Job#: [id number]
== END 2017-08-30 13:00 | disposition home or self-care (01) ==
LOC: ER 13:53 → ERHOLD 18:44 → IMCU 20:44
PROVIDERS: ADMIT Family Medicine; ATTEND Family Medicine
DX: J94.8 Other specified pleural conditions (principal); R10.11 Right upper quadrant pain; E87.6 Hypokalemia; J90 Pleural effusion, not elsewhere classified; J98.11 Atelectasis; F17.210 Nicotine dependence, cigarettes, uncomplicated; J44.9 Chronic obstructive pulmonary disease, unspecified; N28.1 Cyst of kidney, acquired; R06.02 Shortness of breath; R07.89 Other chest pain; K81.1 Chronic cholecystitis
CPT/HCPCS: 36415 ×3; 71045; 71250; 71260; 74170; 74177; 76705; 78227; 80048; 80053 ×2; 81001 ×3; 81025; 82150; 83690; 85025 ×3; 85379; 87086; 93005; 94640 ×6; 99284; A9537; G0378 ×5; J3480; Q9967 ×2

== ENCOUNTER → 2017-09-03 | Day surgery (SDC) | payer OTHER ==
[~2017-09-03] MED LIST: AMBIEN10 MG PO; BUPIVACAINE HCL 0.5% INJ 30 ML VIAL INJ ONE; CEFAZOLIN SOD 2 GM/D5W 50ML 50 ML IV ONE; DEXAMETHASONE SOD PHOS INJ 4 MG/ML VIAL ONE; ESMOLOL HCL 100MG/10ML 10 MG/ML VIAL ONE; FENTANYL CITRATE/PF 100MCG/2 ML INJ ONE; GLYCOPYRROLATE INJ 1MG/ 5 ML SYR ONE; HYDROCHLOROTH12.5 M1 PO; LIDOCAINE HCL 2% LOCAL INJ 5 ML SDV VIAL INJ ONE; MIDAZOLAM HCL 2 MG/2 ML VIAL ONE; MORPHINE SULFATE 2 MG/ML SYR ONE; ONDANSETRON HCL INJ 2 MG/ML VIAL ONE; PROPOFOL IV EMULSION 10 MG/ML 20 ML VIAL ONE; ROCURONIUM BROMIDE 10 MG/ML 5ML VIAL ONE; SEVOFLURANE INHAL SOLN 250 ML PEN BTL ONE; ULTRAM 50MG50 MG PO
--- OUTSIDE RECORDS SUMMARY | 2017-09-03 05:44 | XMS REPORT | Continuity of Care Document ---
Author Author [facility] Organization [facility] Address [address] [place] [address] Phone Unavailable Care Team Providers Care Trim Mechanic Name Role Phone NONSTAFF PCP Unavailable Insurance Providers Guarantor Vinnie Trinh Address [address] [place] [address] Email NONE Payer [facility] Policy Number [id number] Subscriber's Name Trinh,Vinnie Segovia Relationship 18 Self / Same As Patient Group Number [id number] Group Name [facility] Effective Date 11 Advance Directives Directive Response Recorded Date/Time Does the patient have an advance directive? No 08/26/17 8:45pm If yes, is advance directive on file with [facility]? No 08/26/17 8:45pm If not on file with [facility] will patient provide a copy? No 03/21/13 11:15am Do you have a Directive to Physician? No 08/26/17 4:57pm Do you have a Medical Power of Special Needs Babysitter? No 08/26/17 4:57pm Do you have an out of hospital Do Not Resuscitate Order? No 08/26/17 4:57pm Do you have any special needs we should be aware of? No 08/26/17 4:57pm Do you have a support person here with you today? Yes 08/26/17 4:58pm Did patient receive Notice of Privacy Practices? Yes 08/26/17 4:58pm Did patient receive patient rights and responsibilities? Yes 08/26/17 4:58pm Problems Medical Problem Onset Date Status Hypokalemia Unknown Lesion of right lung Unknown Medications Current Home Medications Medication Dose Units Route Directions Days Qty Instructions Start Date Hydrochlorothiazide 12.5 Mg Capsule 12.5 Mg Oral Daily Tramadol Hcl (Ultram 50MG*) 50 Mg Tab 50 Mg Oral Every 4 Hours Zolpidem Tartrate (Ambien) 10 Mg Tablet 10 Mg Oral Bedtime as needed for Insomnia 30 Tab Social History Social History Problem Response Recorded Date/Time Onset Date Status Hx Psychiatric Problems No 08/26/2017 8:45pm Not Applicable Not Applicable Hx Eating Disorder No 08/26/2017 8:45pm Not Applicable Not Applicable Hx Substance Use Disorder No 08/26/2017 8:45pm Not Applicable Not Applicable Hx Depression No 08/26/2017 8:45pm Not Applicable Not Applicable Hx Alcohol Use No 08/26/2017 8:45pm Not Applicable Not Applicable Hx Substance Use Treatment No 08/26/2017 8:45pm Not Applicable Not Applicable Hx Physical Abuse No 08/26/2017 8:45pm Not Applicable Not Applicable Smoking Status Start Date Stop Date Current every day smoker Hospital Discharge Instructions No hospital discharge instruction information available. Plan of Care Discharge Date 08/30/17 1:00pm Disposition HOME, SELF-CARE Instructions/Education Provided Hypokalemia Prescriptions See Medication Section Functional Status Query Response Date Recorded Assistive Devices None August 26, 2017 8:48pm Ambulation Ability Independent August 26, 2017 8:48pm Toileting Ability Minimum Assistance August 30, 2017 8:54am Allergies, Adverse Reactions, Alerts No known allergies. Immunizations No immunization information available. Vital Signs Acute Vital Signs Vital Response Date/Time Temperature (Fahrenheit) 97.0 degrees F (97.6 - 99.5) 08/30/2017 11:58am Pulse Pulse Rate (adult) 81 bpm (60 - 90) 08/30/2017 11:58am Respiratory Rate 20 bpm (12 - 24) 08/30/2017 11:58am Blood Pressure 122/57 mm Hg 08/30/2017 11:58am Height 4 ft 10 in 08/26/2017 2:00pm Weight 143.06 lb 08/27/2017 8:49am Body Mass Index 29.9 kg/m^2 08/27/2017 8:49am Results Laboratory Results Test Name Result Units Flags Reference Collection Date/Time Result Date/ Time Comments White Blood Count 9.05 x10e3/uL 4.8-10.8 08/28/2017 6:15am 08/28/2017 6 :28am Red Blood Count 4.80 x10e6/uL 3.6-5.1 08/28/2017 6:15am 08/28/2017 6: 28am Hemoglobin 14.4 g/dL 12.0-16.0 08/28/2017 6:1508/28/2017 6:28am Hematocrit 41.6 % 34.2-44.1 08/28/2017 6:15am 08/28/2017 6:28am Mean Corpuscular Volume 86.7 fL 81-99 08/28/2017 6:15am 08/28/2017 6: 28am Mean Corpuscular Hemoglobin 30.0 pg 28-32 08/28/2017 6:15am 08/28/2017 6:28am Mean Corpuscular Hemoglobin Concent 34.6 g/dL 31-35 08/28/2017 6:1508/28/2017 6:28am Red Cell Distribution Width 12.5 % 11.7-14.4 08/28/2017 6:15am 2017 6:28am Platelet Count 300 x10e3/uL 140-360 08/28/2017 6:15am 08/28/2017 6: 28am Neutrophils (%) (Auto) 52.7 % 38.7-80.0 08/28/2017 6:15am 08/28/2017 6: 28am Lymphocytes (%) (Auto) 28.1 % 18.0-39.1 08/28/2017 6:1508/28/2017 6: 28am Monocytes (%) (Auto) 9.4 % 4.4-11.3 08/28/2017 6:15am 08/28/2017 6: 28am Eosinophils (%) (Auto) 8.0 % H 0.0-6.0 08/28/2017 6:15am 08/28/2017 6: 28am Basophils (%) (Auto) 1.2 % H 0.0-1.0 08/28/2017 6:15am 08/28/2017 6: 28am IM GRANULOCYTES % 0.6 % 0.0-1.0 08/28/2017 6:15am 08/28/2017 6:28am Neutrophils # (Auto) 4.8 2.1-6.9 08/28/2017 6:15am 08/28/2017 6:28am Lymphocytes # (Auto) 2.5 1.0-3.2 08/28/2017 6:15am 08/28/2017 6:28am Monocytes # (Auto) 0.9 H 0.2-0.8 08/28/2017 6:15am 08/28/2017 6:28am Eosinophils # (Auto) 0.7 H 0.0-0.4 08/28/2017 6:15am 08/28/2017 6: 28am Basophils # (Auto) 0.1 0.0-0.1 08/28/2017 6:15am 08/28/2017 6:28am Absolute Immature Granulocyte (auto 0.05 x10e3/uL 0-0.1 08/28/2017 6: 15am 08/28/2017 6:28am D-Dimer Quantitative (PE/DVT) 2.25 ug/mLFEU H 0.00-0.45 08/26/2017 2: 16pm 08/26/2017 2:39pm As with all in vitro diagnostic tests, the test results should be interpreted by the physician in conjunction with clinical findings and other test results. Test results are reported in NEW D-dimer units(ug/mLFEU). Urine Color YELLOW YELLOW 08/30/2017 8:00am 08/30/2017 9:46am Urine Clarity SL CLOUDY CLEAR 08/30/2017 8:00am 08/30/2017 9:46am Urine Specific [place] 1.020 1.010-1.025 08/30/2017 8:00am 2017 9:46am Urine pH 6 5 - 7 08/30/2017 8:00am 08/30/2017 9:46am Urine Leukocyte Esterase TRACE H NEGATIVE 08/30/2017 8:00am 2017 9:46am Urine Nitrite NEGATIVE NEGATIVE 08/30/2017 8:00am 08/30/2017 9:46am Urine Protein NEGATIVE NEGATIVE 08/30/2017 8:00am 08/30/2017 9:46am Urine Glucose (UA) NEGATIVE NEGATIVE 08/30/2017 8:00am 08/30/2017 9: 46am Urine Ketones NEGATIVE NEGATIVE 08/30/2017 8:00am 08/30/2017 9:46am Urine Urobilinogen 0.2 mg/dL 0.2 - 1 08/30/2017 8:00am 08/30/2017 9: 46am Urine Bilirubin NEGATIVE NEGATIVE 08/30/2017 8:00am 08/30/2017 9: 46am Urine Blood 1+ H NEGATIVE 08/30/2017 8:00am 08/30/2017 9:46am Urine WBC 0-5 /HPF 0-5 08/30/2017 8:00am 08/30/2017 9:59am Urine RBC 0-5 /HPF 0-5 08/30/2017 8:00am 08/30/2017 9:59am Urine Bacteria RARE /HPF NONE 08/30/2017 8:00am 08/30/2017 9:59am Urine Epithelial Cells MODERATE /LPF NONE 08/30/2017 8:00am 08/30/2017 9:59am Urine Mucus FEW H RARE 08/26/2017 2:09pm 08/26/2017 3:52pm Urine Test NEGATIVE NEGATIVE 08/27/2017 UNK 08/27/2017 10: 08am Sodium Level 137 mmol/L 136-145 08/28/2017 6:15am 08/28/2017 7:02am Potassium Level 3.6 mmol/L 3.5-5.1 08/28/2017 6:15am 08/28/2017 7:02am Chloride Level 97 mmol/L L 98-107 08/28/2017 6:15am 08/28/2017 7:02am Carbon Dioxide Level 31 mmol/L H 22-29 08/28/2017 6:15am 08/28/2017 7: 02am Anion Gap 12.6 mmol/L 8-16 08/28/2017 6:15am 08/28/2017 7:02am Blood Urea Nitrogen 10 mg/dL 7-08/28/2017 6:15am 08/28/2017 7:02am Creatinine 0.71 mg/dL 0.57-1.11 08/28/2017 6:15am 08/28/2017 7:02am BUN/Creatinine Ratio 14 6-25 08/28/2017 6:15am 08/28/2017 7:02am Estimat Glomerular Filtration Rate > 60 ML/MIN 60- 08/28/2017 6:15am 7:02am Ranges were taken from the National Kidney Disease Education Program and the National Kid[employer] Foundation literature. Reference ranges: 60 or greater: Normal 16-59 (for 3 consecutive months): Chronic kidney disease 15 or less: Kidney failure Glucose Level 106 mg/dL 74-118 08/28/2017 6:15am 08/28/2017 7:02am Calcium Level 9.6 mg/dL 8.4-10.2 08/28/2017 6:15am 08/28/2017 7:02am Total Bilirubin 0.6 mg/dL 0.2-1.2 08/27/2017 6:20am 08/27/2017 7:39am Aspartate Amino Transf (AST/SGOT) 24 IU/L 5-34 08/27/2017 6:20am 2017 7:39am Alanine Aminotransferase (ALT/SGPT) 31 IU/L 0-55 08/27/2017 6:20am 02/2018 7:39am Total Protein 7.2 g/dL 6.5-8.1 08/27/2017 6:20am 08/27/2017 7:39am Albumin 2.9 g/dL L 3.5-5.0 08/27/2017 6:20am 08/27/2017 7:39am Globulin 4.3 g/dL H 2.3-3.5 08/27/2017 6:2008/27/2017 7:39am Albumin/Globulin Ratio 0.7 L 0.8-2.0 08/27/2017 6:20am 08/27/2017 7: 39am Alkaline Phosphatase 144 IU/L 40-150 08/27/2017 6:20am 08/27/2017 7: 39am Amylase Level 25 U/L 25-125 08/26/2017 2:16pm 08/26/2017 2:46pm Lipase 18 U/L 8-78 08/26/2017 2:16pm 08/26/2017 2:46pm Procedures Procedure Status Date Provider(s) Laparoscopic cholecystectomy Active 09/03/17 JUAN PABLO DUNBAR MD X-ray of chest, single view Active 08/26/17 JOSELITO TABOR BLOWER BLAST FURNACE US gallbladder Active 08/26/17 JOSELITO TABOR NP Computed tomography of chest with contrast Active 08/26/17 JOSELITO TABOR NP Computed tomography of abdomen and pelvis with contrast Active 08/26/17 DOMINIQUE CHARLES Computed tomography of abdomen without then with contrast Active 08/29/17 ELIZABETH CÁRDENAS MD Computed tomography of chest without contrast Active 08/30/17 ELIZABETH CÁRDENAS MD Encounters Encounter Location Arrival/Admit Date Discharge/Depart Date Attending Provider Discharged Inpatient (obs) [facility] 08/26/17 6:44pm 06/07 1:00pm ELIZABETH CÁRDENAS MD
--- NOTE | 2017-09-03 08:07 | Operative Report ---
DATE OF PROCEDURE: September 03, 2017 PREOPERATIVE DIAGNOSIS: Chronic cholecystitis. POSTOPERATIVE DIAGNOSIS: Chronic cholecystitis. PROCEDURES PERFORMED 1. Diagnostic laparoscopy. 2. Laparoscopic cholecystectomy. NATIONAL SALES EXECUTIVE: None. ANESTHESIA: General. INDICATIONS AND FINDINGS: Patient is a 51-year-old female who has had episodes of epigastric right upper quadrant abdominal pain. Workup revealed abnormal HIDA scan with low ejection fraction. At surgery, the patient's gallbladder was distended with adhesions involving omentum and duodenum over the neck and fundus of the gallbladder. Cystic duct was about 2 mm in diameter. Common bile duct was about 5 mm in diameter. There were some adhesions to the right lobe of the liver. The remainder of laparoscopy is unremarkable. TECHNIQUE: After adequate general endotracheal anesthesia and the patient in the supine position, the abdomen was prepped and draped in a sterile fashion with [place] solution. Skin in the umbilicus was infiltrated with 0.5% Marcaine. Incision made in the umbilicus. Abdominal wall was elevated and Veress needle was introduced. Pneumoperitoneum was then created. A 10-mm trocar and cannula was then passed through the umbilical wound. Laparoscopic camera was introduced. Initial laparoscopy revealed the gallbladder to be distended. There was some adhesions over the right lobe of the liver. The remainder of the laparoscopy was unremarkable. A 10-mm trocar and cannula was placed in the epigastrium and two 5-mm trocars and cannulas were placed in the right upper quadrant. These were placed under direct vision. Fundus of the gallbladder was grasped and retracted superiorly. The adhesions over the neck and fundus of the gallbladder were lysed staying close to the gallbladder. Neck of the gallbladder was grasped and retracted laterally. Peritoneum over the neck of the gallbladder was incised. The gallbladder cystic duct junction was dissected free. Cystic artery was also dissected free. The neck of the gallbladder completely dissected free. Cystic artery was divided between Hemoclips close to the gallbladder. Cystic duct was also divided between Hemoclips with 3 clips placed on the common bile duct side. The gallbladder was dissected free from the liver using scissors and electrocautery. Once it was entirely free, it was placed into an Endopouch and brought out through the epigastric cannula. There were no stones palpable. Gallbladder bed was inspected for hemostasis, which was seen to be adequate. It was irrigated with saline. All fluid aspirated and inspected once again for hemostasis, which was seen to be adequate. Instruments and cannulas were then removed. Pneumoperitoneum was evacuated. Wounds were then closed. Fascia in the umbilical and epigastrium closed with 0 Vicryl. Skin to all wounds closed with 4-0 Vicryl in a subcuticular fashion. Dermabond and sterile dressing were applied to each wound. The patient tolerated the procedure well. Estimated blood loss was 10 mL. There were no complications. All counts were correct. The patient was taken to the recovery room in satisfactory condition. Job#: [id number] RI cc:ELIZABETH CÁRDENAS MD
== END | disposition home or self-care (01) ==
LOC: OR 05:42
PROVIDERS: ATTEND Surgery
DX: K81.1 Chronic cholecystitis (principal); K82.8 Other specified diseases of gallbladder; I10 Essential (primary) hypertension; N20.0 Calculus of kidney; F17.210 Nicotine dependence, cigarettes, uncomplicated
CPT/HCPCS: 47562; 88304; J1100; J2001; J2250; J2270; J2405

== ENCOUNTER 2018-12-14 09:31 | Emergency (ER) | payer OTHER ==
[~2018-12-14] VITALS: Ht 147.3 cm; Wt 64.9 kg
[~2018-12-14 09:31] MED LIST changes: -BUPIVACAINE HCL 0.5% INJ 30 ML VIAL INJ ONE; -CEFAZOLIN SOD 2 GM/D5W 50ML 50 ML IV ONE; -DEXAMETHASONE SOD PHOS INJ 4 MG/ML VIAL ONE; -ESMOLOL HCL 100MG/10ML 10 MG/ML VIAL ONE; -FENTANYL CITRATE/PF 100MCG/2 ML INJ ONE; -GLYCOPYRROLATE INJ 1MG/ 5 ML SYR ONE; -LIDOCAINE HCL 2% LOCAL INJ 5 ML SDV VIAL INJ ONE; -MIDAZOLAM HCL 2 MG/2 ML VIAL ONE; -MORPHINE SULFATE 2 MG/ML SYR ONE; -ONDANSETRON HCL INJ 2 MG/ML VIAL ONE; -PROPOFOL IV EMULSION 10 MG/ML 20 ML VIAL ONE; -ROCURONIUM BROMIDE 10 MG/ML 5ML VIAL ONE; -SEVOFLURANE INHAL SOLN 250 ML PEN BTL ONE
[2018-12-14] MEDS ORDERED: SODIUM CHLORIDE 0.9% 1000ML 1,000 ML IV STA (10:06)
[2018-12-14] MEDS ORDERED: DIPHENHYDRAMINE HCL INJ 50 MG/ML VIAL IV ONE (10:15)
[2018-12-14] MEDS ORDERED: METOCLOPRAMIDE HCL 10 MG/2ML VIAL IV ONE (10:30)
[2018-12-14] MEDS ORDERED: KETOROLAC TROMETHAMINE 30 MG/ML VIAL IV ONE (10:30)
[2018-12-14] MEDS ORDERED: FIORINAL 50-321 EACH PO (11:14)
--- NOTE | 2018-12-14 11:25 | NUR ---
PATIENT REFUSING CT AT THIS TIME STATING "I SPOKE WITH DR MONTGOMERY AND SHE SAID I COIULD GO HOME, I DO NOT WANT TO GET THE CT, I WANT TO GO HOME"
[2018-12-14 11:44] VITALS: BP 137/96
== END 2018-12-14 11:46 | disposition home or self-care (01) ==
LOC: ER 09:31
DX: G43.111 Migraine with aura, intractable, with status migrainosus (principal)
CPT/HCPCS: 99283; J1200; J1885; J2765; J7030

== ENCOUNTER 2022-11-05 17:34 | Emergency (ER) | payer OTHER ==
[~2022-11-05] VITALS: Ht 147.3 cm; Wt 64.9 kg
[~2022-11-05 17:34] MED LIST changes: +FIORINAL 50-321 EACH PO
[2022-11-05 18:14] VITALS: O2SAT 99
[2022-11-05] MEDS ORDERED: HYDROCODONE/APAP 10MG-325MG TAB PO ONE (18:30)
== END 2022-11-05 19:48 | disposition home or self-care (01) ==
LOC: ER 17:53
DX: M25.571 Pain in right ankle and joints of right foot (principal); S96.811A Strain of other specified muscles and tendons at ankle and foot level, right foot, initial encounter; X50.1XXA Overexertion from prolonged static or awkward postures, initial encounter; Y93.01 Activity, walking, marching and hiking; Y92.89 Other specified places as the place of occurrence of the external cause
CPT/HCPCS: 99283